=== PATIENT | female | born 2000 | race Caucasian/White ===

== ENCOUNTER 2021-03-08 15:45 | Observation (INO) ==
[2021-03-08] MEDS ORDERED: Acetaminophen 325 MG TABLET PO ONE (17:24)
[2021-03-08] MEDS ORDERED: Ondansetron ODT 4 MG TAB.RAPDIS SL ONE (17:24)
[2021-03-08] MEDS ORDERED: Ibuprofen 400 MG TABLET PO ONE (17:24)
[2021-03-08] MEDS ORDERED: *HR* Propofol 200 MG/20 ML VIAL IVP ONE (21:18)
[2021-03-08] MEDS ORDERED: Neostigmine Methylsulfate 3 MG/3 ML SYRINGE ONE (21:18)
[2021-03-08] MEDS ORDERED: *HR* FentaNYL (PF) 100 MCG/2 ML VIAL ONE ×2 (21:18→21:52)
[2021-03-08] MEDS ORDERED: *HR* Rocuronium Bromide 50 MG/5 ML VIAL ONE (21:18)
[2021-03-08] MEDS ORDERED: Ondansetron 4 MG/2 ML VIAL ONE (21:18)
[2021-03-08] MEDS ORDERED: CefOXitin 1,000 MG VIAL ONE (21:20)
[2021-03-08] MEDS ORDERED: *HR* HYDROmorphone PF 0.5 MG/0.5 ML SYRINGE IVP PRN ×2 (21:23→22:33)
[2021-03-08] MEDS ORDERED: CefOXitin 2,000 MG VIAL ONE (21:37)
[2021-03-08] MEDS ORDERED: Ondansetron 4 MG/2 ML VIAL IVP PRN (22:33)
[2021-03-08] MEDS ORDERED: 0.9 % Sodium Chloride 1,000 ML IVC SCH (22:33)
[2021-03-08] MEDS: *HR* OxyCODONE/APAP 5/325 TABLET PO PRN (23:21)
[2021-03-09] MEDS: *HR* OxyCODONE/APAP 5/325 TABLET PO PRN (03:30)
[2021-03-09] MEDS ORDERED: cefOXitin 2,000 MG in Water for inj. (sterile) 20 ML IVP SCH ×2 (06:00)
[2021-03-09] MEDS ORDERED: Ketorolac 15 MG/ML VIAL IVP PRN (06:08)
[2021-03-09 07:36] VITALS: BP 103/60
== END 2021-03-09 10:44 | disposition home or self-care (01) ==
LOC: EMEROOARM 15:45 → 3ANU 15:45
PROVIDERS: ADMIT Surgery; ATTEND Surgery